=== PATIENT | male | born 1990 | race Caucasian/White ===

== ENCOUNTER 2018-10-12 14:35 | Emergency (ER) | payer OTHER ==
[~2018-10-12] VITALS: Ht 185.4 cm; Wt 89.8 kg
[2018-10-12 14:35] VITALS: BP_SYST 121
--- NOTE | 2018-10-12 14:35 | NUR ---
Patient triaged and placed in waiting room. VSS and patient appears in no acute distress at this time. Accompanied by FRIEND, awaiting available bed, and MD notified of need for MSE.
[2018-10-12] MEDS ORDERED: LIDOCAINE/EPI 1% 1:100000 20 ML VIAL INJ ONE (14:45)
[2018-10-12] MEDS ORDERED: BACITRACIN 1 GM OINT TP ONE (14:45)
[2018-10-12] MEDS ORDERED: IBUPROFEN 600 MG TABLET PO ONE (14:45)
[2018-10-12] MEDS ORDERED: DIPH-TET-PERTUS Vaccine 0.5 ML VIAL (ADACEL) I.M. ONE (15:00)
--- NOTE | 2018-10-12 15:55 | NUR ---
BROUGHT BACK TO BED #4 AND REPORT GIVEN TO OFE
--- NOTE | 2018-10-12 15:57 | NUR ---
Young ZAVALETA NEUROCRITICAL CARE PHYSICIAN. at bedside examining patient.
--- NOTE | 2018-10-12 16:30 | NUR ---
Patient presented to ER with facial laceration. Patient A&Ox4, ambulatory to ER, afebrile, laceration approx. 3 cm to left lateral periorbital area. Patient states injury occurred at gym today. Patient states he was plaing basketball when another player hit pt in the face causing laceration to face. patient states pain 08/01, denies N/V/D. deies other health hx
--- NOTE | 2018-10-12 16:31 | NUR ---
Patient has a approx. 3 cm laceration to left lateral periorbital. Young Palacios NP applied sutures using sterile technique. Edges well approximated. Site cleansed with normal saline per Sary TECHNICAL MANAGER ]. bacitracin of applied to site with 6 sutures well approximated. No bleeding noted. Pt tolerated well.
[2018-10-12 17:10] VITALS: BP_SYST 121
--- NOTE | 2018-10-12 17:10 | NUR ---
Patient given written and verbal discharge instructions and verbalizes understanding. ER MD discussed with patient the results and treatment provided. Patient in stable condition. ID arm band removed. Rx of bacitracin & motrin given. Patient educated on pain management and to follow up with PMD. Pain Scale 4/10 tolerable for pt. Opportunity for questions provided and answered. Medication side effect fact sheet provided.
--- NOTE | 2018-10-12 19:23 | NUR ---
Note undone in EDM - 10/12/18 at 1925 by ZACKEDTD Patient given written and verbal discharge instructions and verbalizes understanding. ER discussed with patient the results and treatment provided. Patient in stable condition. ID arm band removed. Rx of bacitracin & motrin given. Patient educated on pain management and to follow up with PMD. Pain Scale 4/10 tolerable for pt. Opportunity for questions provided and answered. Medication side effect fact sheet provided.
== END 2018-10-12 17:10 | disposition home or self-care (01) ==
LOC: SED 14:35
DX: S01.81XA Laceration without foreign body of other part of head, initial encounter (principal); R03.0 Elevated blood-pressure reading, without diagnosis of hypertension
CPT/HCPCS: 70486-TC; 90715; 99284

== ENCOUNTER 2019-04-10 03:09 | Emergency (ER) | payer MEDICAID, OTHER ==
--- NOTE | 2019-04-10 03:53 | NUR ---
Patient left without being seen. No further treatment provided. ER MD aware
--- NOTE | 2019-04-10 03:53 | NUR ---
Called pt in, no answer
== END 2019-04-10 03:53 | disposition left against medical advice (07) ==
LOC: SED 03:09
DX: R50.9 Fever, unspecified (principal); R06.02 Shortness of breath; Z53.21 Procedure and treatment not carried out due to patient leaving prior to being seen by health care provider